=== PATIENT | male | born 1950 ===

== ENCOUNTER 2017-12-23 11:36 | Emergency (ER) | payer BC ==
--- NOTE | 2017-12-23 12:43 | UC ---
Knee Pain HPI - HPI Summary HPI Summary: 67 y/o male presents to the urgent care c/o Rt knee pain s/p stepping backwards while working w/ his horse around 0730Am. Pt reports he heard a " cracking sound ". Pt is able to bear weight and walks w/ mild limp. Pt took Ibuprofen 600mg PO to alleviate symptoms. Pain is 3/10 localized on the lateral side of RT knee. Pt denies numbness or tingling sensation over the lower RT leg, SOB, calf pain, chest pain, abdominal pain, N/V/D. - History of Current Complaint Chief Complaint: UCLowerExtremity Stated Complaint: KNEE COMPLAINT Time Seen by Provider: 12/23/17 12:39 Hx Obtained From: Patient Onset/Duration: Sudden Onset, Lasting Hours - 5 hrs Severity Initially: Mild Severity Currently: Mild Pain Intensity: 3 Pain Scale Used: 0-10 Numeric Character: Sharp Aggravating Factor(s): Movement, Weight Bearing, Stairs Alleviating Factor(s): Rest Associated Signs And Symptoms: Positive: Negative. Negative: Swelling, Redness , Bruising, Fever, Numbness, Tingling Able to Bear Weight: Yes - Risk Factors Septic Arthritis Risk Factor: Negative Gout Risk Factor: Age ^ 39, Male, DM, HTN - Allergies/Home Medications Allergies/Adverse Reactions: Allergies Allergy/AdvReac Type Severity Reaction Status Date / Time No Known Allergies Allergy Verified 12/23/17 11:58 Home Medications: Home Medications Aspirin Low Dose CHEW TAB* [Aspirin Low Dose TAB*] 81 mg PO DAILY 12/23/17 [ History Confirmed 12/23/17] Insulin Glargine,Hum.rec.anlog [Lantus] 40 unit SQ DAILY 12/23/17 [History Confirmed 12/23/17] Ipratropium HFA INHALER(NF) [Atrovent Hfa Inhaler(NF)] 2 puff INH DAILY PRN [History Confirmed 12/23/17] Loratadine [Claritin 10 MG CAP] 10 mg PO DAILY 12/23/17 [History Confirmed 12/23] Multivitamin [Multivitamins] 1 cap PO DAILY 12/23/17 [History Confirmed 12/23/17 ] Pravastatin Sodium 40 mg PO DAILY 12/23/17 [History Confirmed 12/23/17] Valsartan TAB* [Diovan TAB*] 180 mg PO DAILY 12/23/17 [History Confirmed ] metFORMIN* [Glucophage 1000 MG TAB *] 1,000 mg PO BID 12/23/17 [History Confirmed 12/23/17] PMH/Surg Hx/FS Hx/Imm Hx Previously Healthy: Yes Endocrine History: Diabetes, Dyslipidemia Cardiovascular History: Hypertension - Surgical History Surgical History: Yes Surgery Procedure, Year, and Place: appendectomy, T&A, bertrand, R knee arthoscopy , spleen hematoma fx, hernia removal, testicular tumor removal - Social History Alcohol Use: None Substance Use Type: None Smoking Status (MU): Former Smoker Review of Systems Constitutional: Negative Skin: Negative Eyes: Negative ENT: Negative Respiratory: Negative Cardiovascular: Negative Gastrointestinal: Negative Genitourinary: Negative Motor: Negative Neurovascular: Negative Musculoskeletal: Decreased ROM - RT knee, Other: - RT knee pain Neurological: Negative Psychological: Negative Is Patient Immunocompromised?: No All Other Systems Reviewed And Are Negative: Yes Physical Exam - Summary Physical Exam Summary: Vital Signs Reviewed: Yes General: well developed, well nourished male sitting in the examining table w/o any apparent distress Eyes: Positive: Conjunctiva Clear - PERRLA, EOMI, fundi grossly normal ENT: Positive: Normal ENT inspection, Hearing grossly normal, Pharynx normal, TMs normal Neck: Positive: Supple, Nontender, No Lymphadenopathy Respiratory: Positive: Chest nontender, Lungs clear, Normal breath sounds, No respiratory distress Cardiovascular: Positive: RRR, No Murmur, Pulses Normal, Brisk Capillary Refill Abdomen Description: Positive: Nontender, No Organomegaly, Soft. Negative: CVA Tenderness (R), CVA Tenderness (L) Bowel Sounds: Positive: Present Musculoskeletal: Positive: Strength Intact, No Edema, Knee: Pt is able to bear weight and ambulate with limping. No surface trauma, no soft tissue swelling, or obvious effusion. No overlying erythema or warmth. The R knee is without obvious asymmetry or deformity when compared with the L knee. Decreased ROM of RT knee due to pain. Point tenderness to palpation over the patella, no effusion or ballottement. No tenderness over the infrapatellar tendon. Point tenderness over the lateral joint line, No tenderness over the medial or lateral tibial plateaus. No tenderness over the proximal fibular head, No tenderness, fullness or mass of the popliteal fossa. No quadriceps tenderness. No laxity of the ACL. PCL, MCL, or LCL. no collateral ligament laxity to valgus or varus stress. Negative Nani/Drawer sign. Positive Anamika. Distal motor and neurovascular status intact. Neurological Exam: Normal Psychological Exam: Normal Skin Exam: Normal Triage Information Reviewed: Yes Vital Signs: Initial Vital Signs Temp 98.3 F 12/23/17 12:04 Pulse 82 12/23/17 12:04 Resp 18 12/23/17 12:04 BP 143/80 12/23/17 12:04 Pulse Ox 98 12/23/17 12:04 Knee Pain Course/Dx - Course Course Of Treatment: 67 y/o male presents to the urgent care c/o Rt knee pain s/ p stepping backwards while working w/ his horse around 0730Am. Pt reports he heard a " cracking sound". Pt is able to bear weight and walks w/ mild limp. Pt took Ibuprofen 600mg PO to alleviate symptoms. Pain is 3/10 localized on the lateral side of RT knee. Pt denies numbness or tingling sensation over the lower RT leg, SOB, calf pain, chest pain, abdominal pain, N/V/D.Hx obtained. RT knee X-ray ordered. Impression:Suprapatellar effucion w/o fracture. Pt's knee immobilized w/ Knee immobilizer to avoid flexion. Advised RICE. Avoid strenuous exercise or standing for long period of time. If not improvement of symptoms to f/u with his Orthopedic Dr Mohan or your PCP in 3 days for further evaluation and treatment. Pt's BP is elevated today advised to decrease salt in diet, monitor BP and f/u with PCP for further management. PT understood and agreed with D/C instructions. - Differential Dx/Diagnosis Differential Diagnosis/HQI/PQRI: Contusion, Fracture (Closed), Gout, Patellofemoral Syndrome, Sprain, Strain, Tendonitis, Other - osteroarthritis Provider Diagnoses: 1- Rt knee pain s/p injury. 2-Rt suprapatellar effusion. 3 - Uncontrolled HTN Discharge - Discharge Plan Condition: Stable Disposition: HOME Patient Education Materials: Knee Pain (ED), Low-Sodium Diet (ED) Referrals: [facility] [[facility]] - 2 Days Parth Mohan MD [Medical Doctor] - 3 Days Additional Instructions: 1-Please take medications as directed to alleviate pain and swelling. 2-Please apply ice, keep your knee immobilized with the Knee immobilizer 3- Please f/u with Orthopedic Dr Salvador 2-3 days for further evaluation and treatment. 4-Your BP is elevated today. please decrease salt in your diet, monitor BP and if it continues to be elevated please f/u with your PCP for further management
--- NOTE | 2017-12-23 13:39 | RAD ---
Indication: Right knee pain. 4 views of the right knee demonstrates suprapatellar effusion. There is no fracture is noted. No other bone or joint abnormality is noted. IMPRESSION: Suprapatellar effusion without fracture.
== END 2017-12-23 14:24 | disposition home or self-care (01) ==
LOC: UCEAST 11:36
DX: S89.91XA Unspecified injury of right lower leg, initial encounter (principal); X50.0XXA Overexertion from strenuous movement or load, initial encounter; Y93.K9 Activity, other involving animal care; Y92.9 Unspecified place or not applicable; M25.461 Effusion, right knee; Z87.891 Personal history of nicotine dependence
CPT/HCPCS: 99203; G0463